=== PATIENT | male | born 1985 | race African-American/Black ===

== ENCOUNTER 2017-11-02 13:17 | Emergency (ER) | payer OTHER ==
[~2017-11-02] VITALS: Ht 182.9 cm; Wt 136.1 kg
--- NOTE | 2017-11-02 13:26 | NUR ---
Pt was seen by and an EKG was done per his order. Pt to be d/c with [facility] ambulance per .
--- NOTE | 2017-11-02 13:40 | NUR ---
Pt d/c with [facility].
== END 2017-11-02 13:45 | disposition home or self-care (01) ==
LOC: ER 13:18
DX: I10 Essential (primary) hypertension (principal)
CPT/HCPCS: 93005; A4663